=== PATIENT | male | born 1985 | race Two or more races ===

== ENCOUNTER 2021-06-11 15:00 | Outpatient (CLI) | payer OTHER | END 2021-06-11 15:01 | disposition critical access hospital (66) | LOC: EMS 15:00 | DX: R55 Syncope and collapse (principal); R11.10 Vomiting, unspecified | CPT/HCPCS: A0425; A0429 ==

== ENCOUNTER 2021-06-11 15:23 | Emergency (ER) | payer OTHER ==
[2021-06-11] MEDS ORDERED: SODIUM CHLORIDE 0.9% 1,000 ML IV STA ×2 (15:57→18:32)
[2021-06-11 16:24] LABS: BASOPHILS % (AUTO) 0.3 %; EOSINOPHILS # (AUTO) 0.1 10^3/uL (0.0-0.7); EOSINOPHILS % (AUTO) 0.7 %; HCT - HEMATOCRIT 42.7 % (42.0-52.0); HGB - HEMOGLOBIN 15.1 g/dL (14.0-18.0); LYMPHOCYTES # (AUTO) 0.7 10^3/uL (1.5-3.5); LYMPHOCYTES % (AUTO) 4.8 %; MEAN CORPUSCULAR HEMOGLOBIN 32.5 pg (27.0-31.0); MEAN CORPUSCULAR HGB CONC 35.4 g/dL (32.0-36.0); MEAN CORPUSCULAR VOLUME 91.8 fL (80.0-94.0); MEAN PLATELET VOLUME 9.5 fL (7.4-11.4); MONOCYTES # (AUTO) 0.5 10^3/uL (0.0-1.0); MONOCYTES % (AUTO) 3.6 %; NEUTROPHILS # (AUTO) 12.5 10^3/uL (1.5-6.6); NEUTROPHILS % (AUTO) 90.2 %; PLT - PLATELET COUNT 252 10^3/uL (130-450); RED BLOOD COUNT 4.65 10^6/uL (4.70-6.10); RED CELL DISTRIBUTION WIDTH 12.4 % (12.0-15.0); WHITE BLOOD COUNT 13.8 x10^3/uL (4.8-10.8)
[2021-06-11 16:36] LABS: ALBUMIN 4.3 g/dL (3.2-5.5); ALBUMIN/GLOBULIN RATIO 1.1 (1.0-2.2); BILIRUBIN,TOTAL 0.8 mg/dL (0.2-1.0); CALCIUM 9.1 mg/dL (8.5-10.3); POTASSIUM 3.2 mmol/L (3.5-5.0); TOTAL PROTEIN 8.1 g/dL (6.7-8.2)
[2021-06-11] MEDS ORDERED: POTASSIUM CHLORIDE 20 MEQ TABLET PO STA (16:50)
--- NOTE | 2021-06-11 17:29 | ED Physician Documentation ---
History of Present Illness - Stated complaint Stated Complaint: SYNCOPE - Chief complaint Chief Complaint: Neuro - History obtained from History obtained from: Patient, EMS - Additonal information Additional information: The patient comes to the emergency department chief complaint of syncopal episode at work. He states that he was feeling okay this morning, other than having some diarrhea, but after getting to work, he began to notice he was feeling lightheaded. He was going about his work when he began to feel very lightheaded and fainted. He does not remember the brief syncopal episode, but according to EMS, his coworkers reported that he Vomited. They called EMS at this point in time. The patient denies any chest pain or shortness of breath. No abdominal pain. The patient has not been known to have any sick contacts. He has had chills throughout the day. No dysuria. He is vaccinated for COVID. Patient is otherwise healthy except for hypertension. Review of Systems Ten Systems: 10 systems reviewed and negative Constitutional: reports: Chills Eyes: reports: Reviewed and negative Ears: reports: Reviewed and negative Nose: reports: Reviewed and negative Throat: reports: Reviewed and negative Cardiac: reports: Reviewed and negative Respiratory: reports: Reviewed and negative GI: reports: Reviewed and negative : reports: Reviewed and negative Skin: reports: Reviewed and negative Musculoskeletal: reports: Reviewed and negative Neurologic: reports: Syncope Psychiatric: reports: Reviewed and negative Endocrine: reports: Reviewed and negative Immunocompromised: reports: Reviewed and negative PD PAST MEDICAL HISTORY - Past Medical History Past Medical History: Yes Cardiovascular: Hypertension - Present Medications Home Medications: Ambulatory Orders Medication Instructions Recorded Confirmed Potassium Chloride [K-Dur] 20 meq PO BIDWM 5 Days #10 tablet 06/11/21 - Allergies Allergies/Adverse Reactions: Allergies Allergy/AdvReac Type Severity Reaction Status Date / Time No Known Drug Allergies Allergy Verified 06/11/21 16:02 - Social History Does the pt smoke?: No Smoking Status: Never smoker PD ED PE NORMAL - Vitals Vital signs reviewed: Yes - General General: Alert and oriented X 3, No acute distress, Well developed/nourished, Other (The patient appears mildly uncomfortable and is shivering, but otherwise no apparent distress.) - HEENT HEENT: Atraumatic, PERRL, EOMI, Moist mucous membranes - Neck Neck: Supple, no meningeal sign - Cardiac Cardiac: RRR, No murmur, Strong equal pulses - Respiratory Respiratory: No respiratory distress, Clear bilaterally - Abdomen Abdomen: Soft, Non tender, Non distended - Back Back: No CVA TTP - Derm Derm: Normal color, Warm and dry, No rash - Extremities Extremities: No deformity, No edema, No calf tenderness / cord - Neuro Neuro: Alert and oriented X 3, 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, Normal speech - Psych Psych: Normal mood, Normal affect Results - Vitals Vitals: Vital Signs - 24 hr 06/11/21 06/11/21 06/11/21 15:32 16:00 18:00 Temperature 36.3 C L Heart Rate 102 H 103 H 119 H Respiratory 16 20 29 H Rate Blood Pressure 132/75 H 124/73 129/73 O2 Saturation 99 100 96 Oxygen O2 Source Room air - EKG (time done) 1529 Rate: Rate (enter#) (99) Rhythm: NSR [place]: Normal Intervals: Normal DC QRS: Normal Ischemia: Other (Borderline T wave abnormalities) - Labs Labs: Laboratory Tests 06/11/21 06/11/21 16:17 16:17 WBC 13.8 H RBC 4.65 L Hgb 15.1 Hct 42.7 MCV 91.8 MCH 32.5 H MCHC 35.4 RDW 12.4 Plt Count 252 MPV 9.5 Neut # (Auto) 12.5 H Lymph # (Auto) 0.7 L [place] # (Auto) 0.5 Eos # (Auto) 0.1 Baso # (Auto) 0.0 Absolute Nucleated RBC 0.00 Nucleated RBC % 0.0 Sodium 129 L Potassium 3.2 L Chloride 92 L Carbon Dioxide 23 Anion Gap 14.0 H BUN 18 Creatinine 1.0 Estimated GFR (MDRD) 84 L Glucose 109 H Calcium 9.1 Total Bilirubin 0.8 AST 24 ALT 19 Alkaline Phosphatase 19 L Total Protein 8.1 Albumin 4.3 Globulin 3.8 Albumin/Globulin Ratio 1.1 Lipase 49 PD MEDICAL DECISION MAKING - ED course Complexity details: reviewed results, re-evaluated patient, considered differential, d/w patient ED course: The patient was worked up in the emergency department with labs, which showed a deficiency in both sodium and potassium at 129 and 3.2. Patient was given a liter 0.9 normal saline in the emergency department and a dose of K-Dur 20 mEq. His white blood cell count was found to be mildly elevated at 13.6. He did not have a fever on arrival in the emergency department, but was mildly tachycardic and continue to have a sense of chills, so I did recheck his temperature, and was found to be 99 orally. The patient's work-up did not present anything alarming, but he continued to be tachycardic with slight increase over the time he was in the emergency department from the low 100s to the 1 teens to 120. He also continued to have significant chills and looks significantly uncomfortable. At this point, I did decide to add a urinalysis, chest x-ray, viral panel, and blood cultures as well as a lactic acid level. He has been given ibuprofen and Tylenol, as I suspect he may be ramping up a fever. He will be signed out to the oncoming emergency physician, Dr. Fish, pending remaining diagnostic results and reevaluation. Departure - Departure Clinical Impression: Hypokalemia, Viral syndrome Syncope Qualifiers: Syncope type: vasovagal syncope Qualified Code(s): R55 - Syncope and collapse Condition: Stable Instructions: ED Potassium Deficiency, ED Syncope Vasovagal, ED Viral Syndrome Prescriptions: Potassium Chloride [K-Dur] 20 meq PO BIDWM 5 Days #10 tablet Comments: Your labs show mild deficiencies of sodium and potassium, both of which have been replaced today. You had an oral temperature of 99, which may indicate a low-grade core temperature, which is generally about 1 degree higher than the oral temperature. You may take ibuprofen and/or Tylenol at home if needed for fevers. Given the diarrhea and the chills with a mildly elevated temp, you most likely have one of the many viruses that go around this time a year. Please be sure you get plenty of fluids to drink and rest at home for the next couple of days until you are feeling better. If you get feeling significantly worse, you should seek medical reevaluation. Forms: Activity restrictions
[2021-06-11] MEDS ORDERED: ACETAMINOPHEN 325 MG TABLET PO STA (18:11)
[2021-06-11] MEDS ORDERED: IBUPROFEN 800 MG TABLET PO STA (18:11)
[2021-06-11 18:44] LABS: ACETAMINOPHEN < 10 ug/mL (10-30); ETOH - ETHANOL < 5.0 mg/dL; SALICYLATE < 6.0 mg/dL
[2021-06-11] MEDS ORDERED: IOVERSOL 320 100 ML VIAL IVP ONE ×2 (18:47→20:25)
[2021-06-11 19:04] LABS: MUDS CUTOFF CONCENTRATIONS CUTOFF CONC BELOW:
--- NOTE | 2021-06-11 19:12 | XRAY Report ---
PROCEDURE: Chest 1 View X-Ray INDICATIONS: chest pain TECHNIQUE: One view of the chest was acquired. COMPARISON: None. FINDINGS: Surgical changes and devices: None. Lungs and pleura: Right hemidiaphragm elevation. No pleural effusions or pneumothorax. Lungs are cl ear. Mediastinum: Mediastinal contours appear normal. Heart size is normal. Bones and chest wall: No suspicious bony lesions. Overlying soft tissues appear unremarkable. IMPRESSION: 1. Right hemidiaphragm elevation. 2. No acute cardiopulmonary disease. Reviewed by: Lloyd Gauthier MD on 06/11/2021 7:11 PM PDT Approved by: Lloyd Gauthier MD on 06/11/2021 7:11 PM PDT Station ID: [id number]
[2021-06-11 19:19] LABS: BILIRUBIN,URINE NEGATIVE (NEGATIVE); GLUCOSE, URINE (UA) NEGATIVE (NEGATIVE); KETONES,URINE (UA) 15 mg/dL (NEGATIVE); LEUKOCYTE ESTERASE, URINE NEGATIVE (NEGATIVE); NITRITE,URINE NEGATIVE (NEGATIVE); OCCULT BLOOD,URINE NEGATIVE (NEGATIVE); PROTEIN,URINE NEGATIVE (NEGATIVE); UROBILINOGEN,URINE 0.2 (NORMAL) E.U./dL (NORMAL)
[2021-06-11 19:21] LABS: CLARITY,URINE CLEAR (CLEAR)
[2021-06-11 19:32] LABS: AMPHETAMINE SCREEN,URINE NEGATIVE (NEGATIVE); BARBITURATE SCREEN,UR NEGATIVE (NEGATIVE); BENZODIAZEPINES SCREEN, URINE NEGATIVE (NEGATIVE); COCAINE SCREEN URINE NEGATIVE (NEGATIVE); METHADONE SCREEN, URINE NEGATIVE (NEGATIVE); METHAMPHETAMINES SCREEN, URINE NEGATIVE (NEGATIVE); OPIATE SCREEN, URINE NEGATIVE (NEGATIVE); OXYCODONE SCREEN, URINE NEGATIVE (NEGATIVE); PROPOXYPHENE SCREEN, URINE NEGATIVE (NEGATIVE); THC CANNABINOID SCREEN, URINE NEGATIVE (NEGATIVE); TRICYCLIC ANTIDEPRESSANT,URINE NEGATIVE (NEGATIVE)
[2021-06-11 19:41] LABS: B. PARAPERTUSSIS- RESP PCR PAN NOT DETECTED; B. PERTUSSIS- RESP PCR PANEL NOT DETECTED; C. PNEUMONIAE- RESP PCR PANEL NOT DETECTED; CORONAVIRUS 229E-RESP PCR NOT DETECTED; CORONAVIRUS HKU1-RESP PCR NOT DETECTED; CORONAVIRUS NL63-RESP PCR NOT DETECTED; CORONAVIRUS OC43-RESP PCR NOT DETECTED; HUMAN METAPNEUMOVIRUS NOT DETECTED; INFLUENZA A- RESP PCR PANEL NOT DETECTED; INFLUENZA B - RESP PCR PANEL NOT DETECTED; M. PNEUMONIAE- RESP PCR PANEL NOT DETECTED; PARAINFLUENZA VIRUS 1 NOT DETECTED; PARAINFLUENZA VIRUS 2 NOT DETECTED; PARAINFLUENZA VIRUS 3 NOT DETECTED; PARAINFLUENZA VIRUS 4 NOT DETECTED; RHINOVIRUS/ENTEROVIRUS NOT DETECTED; RSV- RESP PCR PANEL NOT DETECTED; SARS-CoV-2 -RESP PCR PANEL NOT DETECTED
--- NOTE | 2021-06-11 20:14 | CT Report ---
PROCEDURE: ANGIO CHEST W INDICATIONS: tachypnea, tachycardia, syncope CONTRAST: IV CONTRAST: Optiray 320 ml: 80 PO CONTRAST: *NO PO CONTRAST TECHNIQUE: After the administration of intravenous contrast, 2 mm axial images were acquired from the pulmonary apices to the posterior costophrenic angles during the arterial phase. In addition, 1 mm lung kernel and 5 mm soft tissue kernel reconstructions were performed. 3-dimensional coronal oblique maximum int ensity projection (MIP) reformats, 8 mm axial MIP, and 5 mm coronal and sagittal MPR reformats were t hen performed through the thorax. For radiation dose reduction, the following was used: automated exp osure control, adjustment of mA and/or kV according to patient size. COMPARISON: Chest x-ray, 06/11/2021 FINDINGS: Image quality: Excellent. Pulmonary arteries: Pulmonary arteries are normal in size, and demonstrate no intraluminal filling d efects to suggest central pulmonary embolism. Lungs and pleura: There are innumerable small nodules or nodular infiltrates involving the right uppe r lobe, right middle lobe and to lesser degree right lower lobe. There is a 1.7 cm nodule in the lef t lower lobe demonstrating CT attenuation -2.5 Hounsfield units, likely a pulmonary hamartoma. No ple ural effusions or pneumothorax. Central and peripheral airways are patent. Mediastinum: Heart size is normal, without pericardial effusion. No mediastinal or hilar adenopathy . Thoracic aorta is normal in caliber and enhancement. Esophagus is normal in caliber. Small hiatal hernia. Bones and chest wall: No suspicious bony lesions. Ribs and thoracic spine appear intact throughout. No axillary or supraclavicular adenopathy. The thyroid is normal in size and there are no incident al findings. Abdomen: Visualized upper abdominal solid organs appear normal in the early arterial phase of enhanc ement. IMPRESSION: 1. No evidence for pulmonary embolism. 2. Innumerable small nodules or nodular infiltrates involving the right upper lobe, right middle lobe , and to lesser degree, right lower lobe. An accessory inflammatory etiology is favored. Recommend cl inical correlation and follow-up imaging to ensure resolution. 3. A 1.7 cm nodule in the left lower lobe CT density most compatible with a hamartoma. 4. Small hiatal hernia. Reviewed by: Lloyd Gauthier MD on 06/11/2021 8:13 PM PDT Approved by: Lloyd Gauthier MD on 06/11/2021 8:13 PM [facility] Station ID: [id number]
[2021-06-11] MEDS ORDERED: PROMETHAZINE INJ 25 MG in SODIUM CHLORIDE 0.9% 50 ML IV STA (20:56)
[2021-06-11] MEDS ORDERED: PROMETHAZINE 25 MG/1 ML VIAL ONE (21:08)
--- NOTE | 2021-06-11 22:14 | ED Physician Documentation ---
ED Addendum - Addendum Addendum: 06/11/21 22:11 Patient was signed out to me by Dr. Villalpando. Please see her note for full history and physical on this patient. The CT pulmonary angiogram did not show any evidence of pulmonary embolus. Patient still has mild tachycardia, but improved with IV fluids and Phenergan. He states he is mostly sleepy at this point would like to go home and rest. He is not lightheaded or dizzy with standing. Ambulating without any difficulty in the emergency department as well. Steady gait. Abdomen remains soft, nontender nondistended. Likely that this represents a viral syndrome. He has never been told about the small nodules or infiltrates in the lungs. His is comfortable taking him home, if he fails to improve over the next 24 to 48 hours or worsens in any way, they will return immediately. Tolerating p.o. without difficulty in the emergency department. Patient and family counseled regarding signs and symptoms for which I believe and urgent re-evaluation would be necessary. Patient with good understanding of and agreement to plan and is comfortable going home at this time This document was made in part using voice recognition software. While efforts are made to proofread this document, sound alike and grammatical errors may occur. IMPRESSION: 1. No evidence for pulmonary embolism. 2. Innumerable small nodules or nodular infiltrates involving the right upper lobe, right middle lobe, and to lesser degree, right lower lobe. An accessory inflammatory etiology is favored. Recommend clinical correlation and follow-up imaging to ensure resolution. 3. A 1.7 cm nodule in the left lower lobe CT density most compatible with a ham artoma. 4. Small hiatal hernia. 06/11/21 22:21 Departure - Departure Disposition: 01 Home, Self Care Clinical Impression: Hypokalemia, Viral syndrome, Tachycardia Syncope Qualifiers: Syncope type: vasovagal syncope Qualified Code(s): R55 - Syncope and collapse Condition: Stable Instructions: ED Potassium Deficiency, ED Syncope Vasovagal, ED Viral Syndrome Follow-Up: [facility] [Provider Group] Prescriptions: Potassium Chloride [K-Dur] 20 meq PO BIDWM 5 Days #10 tablet Ondansetron Odt [Zofran] 4 mg TL Q6H PRN #10 tablet PRN Reason: Nausea / Vomiting Comments: Your labs show mild deficiencies of sodium and potassium, both of which have been replaced today. You had an oral temperature of 99, which may indicate a low-grade core temperature, which is generally about 1 degree higher than the oral temperature. You may take ibuprofen and/or Tylenol at home if needed for fevers. Given the diarrhea and the chills with a mildly elevated temp, you most likely have one of the many viruses that go around this time a year. Please be sure you get plenty of fluids to drink and rest at home for the next couple of days until you are feeling better. If you get feeling significantly worse, you should seek medical reevaluation. Your prescriptions were sent to [facility] in [place]. You also need a repeat CT scan to ensure resolution of the small nodules/infiltrates in your lung. This can be done with your doctor. Please return if you are not feeling better in [address] scan results: IMPRESSION: 1. No evidence for pulmonary embolism. 2. Innumerable small nodules or nodular infiltrates involving the right upper lobe, right middle lobe, and to lesser degree, right lower lobe. An accessory inflammatory etiology is favored. Recommend clinical correlation and follow-up imaging to ensure resolution. 3. A 1.7 cm nodule in the left lower lobe CT density most compatible with a hamartoma. 4. Small hiatal hernia. Forms: Activity restrictions
[2021-06-11 22:38] VITALS: BP 110/62
== END 2021-06-11 22:36 | disposition home or self-care (01) ==
LOC: ED 15:23
DX: R55 Syncope and collapse (principal); E87.6 Hypokalemia; E87.1 Hypo-osmolality and hyponatremia; R00.0 Tachycardia, unspecified; B34.9 Viral infection, unspecified; Z20.822 Contact with and (suspected) exposure to COVID-19
CPT/HCPCS: 0202U; 36415; 71045; 71275; 80053; 80306; 80307; 80320; 80329; 81003; 83605; 83690; 85025; 87040; 93005; 96361; 96365; 99283; 99284; A9270; J7040; Q9967; 81001; 87086